=== PATIENT | female | born 1945 | race Caucasian/White ===

== ENCOUNTER → 2019-11-21 16:28 | Outpatient (BNVA) | payer MEDICARE, OTHER, SELFPAY | PROVIDERS: Visit Provider Family Medicine | DX: E78.5 Hyperlipidemia, unspecified (principal); I10 Essential (primary) hypertension; E11.9 Type 2 diabetes mellitus without complications | CPT/HCPCS: 80053; 80061; 83036; 85025 ==

== ENCOUNTER → 2020-07-14 09:05 | Outpatient (BNVA) | payer MEDICARE, OTHER, SELFPAY | PROVIDERS: Visit Provider Family Medicine | DX: E11.9 Type 2 diabetes mellitus without complications (principal) | CPT/HCPCS: 85025 ==

== ENCOUNTER → 2020-07-14 10:39 | Outpatient (BNVA) | payer MEDICARE, OTHER, SELFPAY | PROVIDERS: Visit Provider Family Medicine | DX: E11.9 Type 2 diabetes mellitus without complications (principal); E78.2 Mixed hyperlipidemia; I10 Essential (primary) hypertension; F41.9 Anxiety disorder, unspecified | CPT/HCPCS: 80053; 80061; 83036; 84443; 85025 ==

== ENCOUNTER → 2020-12-02 17:20 | Outpatient (BNVA) | payer MEDICARE, OTHER, SELFPAY | PROVIDERS: Visit Provider Family Medicine | DX: E11.9 Type 2 diabetes mellitus without complications (principal); E78.2 Mixed hyperlipidemia; F41.9 Anxiety disorder, unspecified; I10 Essential (primary) hypertension; M19.90 Unspecified osteoarthritis, unspecified site | CPT/HCPCS: 80053; 80061; 83036; 85025 ==

== ENCOUNTER 2021-01-23 13:30 | Emergency (ER) | payer MEDICARE, OTHER, SELFPAY ==
--- NOTE | 2021-01-23 13:40 | ED_ITS ---
HPI - SOB/Dyspnea General: Stated Complaint: COVID +: WEAK, SOB, COUGH Time Seen by Provider: 01/23/21 13:38 PFSH ED PFSH: Medical History Anxiety Arthritis Hyperlipidemia Hypertension Irritable bowel syndrome Social History Smoking and tobacco status: never smoked Alcohol intake: never Discharge Plan Discharge Prescriptions: No Action lisinopril 10 mg tablet 10 mg PO DAILY Qty: 90 RF: 3 metformin 1,000 mg tablet 1,000 mg PO BID Qty: 180 RF: 2 pravastatin 40 mg tablet 40 mg PO DAILY Qty: 90 RF: 2 Prolia 60 mg/mL syringe See Rx Instructions SUBCUT .COMPLEX RF: 0 meloxicam 7.5 mg tablet 7.5 mg PO DAILY PRNRF: 0 anastrozole 1 mg tablet 1 mg PO DAILY RF: 0 sertraline 100 mg tablet See Rx Instructions .ROUTE .COMPLEX Qty: 180 RF: 0 Coding Level of Care Code ED Header Set Up Operator for Saravanan Marquez
[2021-01-23 13:47] VITALS: BP 146/76; PULSE 99; RESP 16; TEMP 37.4; O2SAT 98
--- NOTE | 2021-01-23 14:01 | XRR_ITS ---
PROCEDURE INFORMATION: Exam: XR Chest Exam date and time: 01/23/2021 2:01 PM Age: 75 years old Clinical indication: Shortness of breath; Additional info: Covid symptoms TECHNIQUE: Imaging protocol: XR of the chest. Views: 1 view. COMPARISON: CR Chest 2 views* [id number] 09/22/2015 10:52 AM FINDINGS: Lungs: The lungs are clear. Pleural spaces: Unremarkable. No pleural effusion. No pneumothorax. Heart/Mediastinum: Unremarkable. No cardiomegaly. Bones/joints: Mild degenerative changes are observed in the lower thoracic spine. Mild levocurvature of the midthoracic spine is appreciated. No acute fracture is visualized. Small calcification in the left subacromial space may be an intra-articular loose body or rotator cuff calcification. Soft tissues: Several small surgical clips are present in the inferolateral right chest wall versus right breast. XR/XR chest 1V portable [id number] IMPRESSION: 1. No acute cardiopulmonary abnormality. 2. Left shoulder intra-articular loose body versus supraspinatus myotendinous calcification. Radiation Dose CTDIVOL = (mGy): DLP = (mGy-cm)
--- NOTE | 2021-01-23 14:19 | W.ED.COVID ---
HPI - COVID General: Chief Complaint: COVID symptoms Stated Complaint: COVID +: WEAK, SOB, COUGH Time Seen by Provider: 01/23/21 13:38 Triage information: Has fever, cough or shortness of breath. History of Present Illness: HPI Narrative: Patient is a 75-year-old female comes to the ED with reported symptoms. Patient has a past medical history of type 2 diabetes, hypertension and hyperlipidemia. Her symptoms started approximately 3 days ago. She has had nasal drainage and congestion along with a fever and cough. She describes her cough as mostly dry but occasionally she coughs up her nasal drainage. She took an at-home COVID-19 test and it came back positive. Denies any chest pain, shortness of breath, abdominal pain, nausea/vomiting, bladder or bowel symptoms. Patient has had normal p.o. intake and is able to keep food and fluids down. Patient also complains of having a little bit of dizziness since onset of symptoms. Patient is fully vaccinated for COVID-19. COVID 19 common symptoms: positive fever(s), non-productive cough, fatigue, body aches and nasal congestion; negative chills, productive cough, dyspnea, headache(s), throat pain, nausea, vomiting or diarrhea COVID 19 other sytmptoms: negative chest pain COVID Results: SARS-CoV-2 Antigen (Rapid) Positive (Negative) H 01/23/21 14:05 01/23/21 Review of Systems Const: Reports: fever(s), body aches and fatigue; Denies: chills Eyes: Denies: change in vision or eye discomfort ENMT: Reports: nasal discharge and nasal congestion; Denies: throat pain or odynophagia Card: Denies: chest pain, palpitations, edema, swelling of feet/ankles, dyspnea on exertion or orthopnea Resp: Reports: non-productive cough; Denies: dyspnea or productive cough GI: Denies: abdominal pain, nausea, vomiting, diarrhea, constipation or hematochezia : Denies: flank pain, dysuria or hematuria Musc: Denies: neck pain, back pain or extremity swelling Skin/Breast: Denies: rash or new lesions Neuro: Reports: dizziness; Denies: headache(s), numbness in extremities or weakness in extremities PFS ED PFSH: Medical History Anxiety Arthritis Hyperlipidemia Hypertension Irritable bowel syndrome Social History Smoking and tobacco status: never smoked Alcohol intake: never Physical Exam Const: COMMON NORMALS: no acute distress, patient oriented x3, healthy appearing and alert GENERAL APPEARANCE: cooperative and comfortable HENMT: COMMON NORMALS: normocephalic HEAD & SCALP: normocephalic MOUTH: Normal oral and palatal mucosa present THROAT: posterior oropharynx normal and uvula midline Neck/C-Spine: COMMON NORMALS: supple GENERAL: Yes normal visual inspection Resp: COMMON NORMALS: normal respiratory effort, No retractions, No use of accessory muscles and clear to auscultation bilaterally EFFORT & INSPECTION: Yes able to speak in complete sentences, No tachypneic, No respiratory distress and No labored AUSCULTATION: clear to auscultation bilaterally Cardio: COMMON NORMALS: regular rate, regular rhythm, S1 normal heart sound present, S2 normal heart sound present, No gallops present (Cardio), No clicks present (Cardio), No murmurs present (Cardio) and Peripheral pulses 2+ throughout RATE: regular rate RHYTHM: regular rhythm HEART SOUNDS: S1 normal heart sound present and S2 normal heart sound present PERIPHERAL PULSES: Peripheral pulses 2+ throughout GI: COMMON NORMALS: Normal to inspection, nondistended, normoactive bowel sounds present, Soft to palpation, non-tender and no masses PALPATION: Yes Soft to palpation : COMMON NORMALS: Yes no CVA tenderness BLADDER/KIDNEY EXAM: Yes no CVA tenderness Back/Pelvis: COMMON NORMALS: no CVA tenderness Extremity: COMMON NORMALS: normal to inspection Neuro: COMMON NORMALS: patient oriented x3 and moves all extremities SENSORIUM/ORIENTATION: Yes alert Skin: GENERAL SKIN EXAM: dry skin Course Vital Signs: Vital signs: Vital Signs Temperature 99.4 F 01/23/21 13:47 Pulse Rate 100 01/23/21 16:11 Respiratory Rate 16 01/23/21 13:47 Blood Pressure 123/59 01/23/21 16:11 Pulse Oximetry 95 01/23/21 16:11 MDM - COVID MDM Narrative: Medical decision making narrative: Patient is a 75-year-old female comes to the ED with Covid symptoms. Symptoms started 3 days ago. Patient has a past medical history of diabetes and hypertension. Patient has been fully vaccinated for COVID-19. She took an at-home Covid test and it was positive. She has had a fever, productive cough and body aches. Vital stable. Exam is benign. Patient's rapid Covid test was positive and her CBC and CMP are unremarkable. Chest x-ray was clear and EKG showed no acute findings. I spoke with patient about monoclonal antibody infusions and she would like to be set up to get an infusion. I placed an order for patient to be set up with MCA infusion. Patient signed an informed consent form for the MCA infusion. I told patient that senior case manager only contacting her on Monday morning to schedule infusion time. Return to ED precautions given. Patient understood and agree with plan. Lab Data: Attestation: I reviewed the patient's lab results. Labs: Lab Results 01/23/21 01/23/21 01/23/21 14:05 15:12 15:12 WBC 5.6 10^3/uL 10^3/ uL (4.0-10.0) RBC 4.14 10^6/uL 10^6 /uL (4.1-5.3) Hgb 12.9 g/dL g/dL (11.5-15.3) Hct 40.0 % % (37.0-47.0) MCV 96.6 fl fl (81-99) MCH 31.2 pg pg (28.0-34.0) MCHC 32.3 g/dL g/dL (30.0-36.0) RDW 13.2 % % (12.1-15.1) Plt Count 244 10^3/cmm 10^3 /cmm (130-400) MPV 9.9 fL fL (7.4-10.4) Neut % (Auto) 68.5 % % Lymph % (Auto) 16.2 % % [place] % (Auto) 13.4 % % Eos % (Auto) 1.2 % % Baso % (Auto) 0.5 % % Neut # (Auto) 3.84 10^3/uL 10^3 /uL (1.8-7.7) Lymph # (Auto) 0.9 10^3/uL 10^3/ uL (0.8-4.8) [place] # (Auto) 0.8 10^3/uL 10^3/ uL (0.2-0.9) Eos # (Auto) 0.1 10^3/uL 10^3/ uL (0.0-0.8) Baso # (Auto) 0.0 10^3/uL 10^3/ uL (0.0-0.1) Nucleated RBC % (a uto) 0 % % Nucleated RBCs # 0.0 /100WBC /100W BC Sodium 138 mmol/L mmol/L (136-145) Potassium 3.8 mmol/L mmol/L (3.5-5.1) Chloride 99 mmol/L mmol/L (98-107) Carbon Dioxide 26 mmol/L mmol/L (22-29) Anion Gap 16.8 (5-19) BUN 14 mg/dL mg/dL (8-23) Creatinine 0.6 mg/dL mg/dL (0.5-0.9) GFR Calculation Not Reportable Glucose 107 mg/dL mg/dL (65-115) Calculated Osmolal ity 287 mOsm/kg mOsm/ kg (285-295) Calcium 9.4 mg/dL mg/dL (8.5-10.5) Total Bilirubin 0.2 mg/dL mg/dL (0.15-1.2) AST 21 U/L U/L (0-32) ALT 15 U/L U/L (0-33) Alkaline Phosphata se 72 IU/L IU/L (35-105) Total Protein 7.5 g/dL g/dL (6.6-8.7) Albumin 4.5 g/dL g/dL (3.5-5.2) Globulin 3.0 g/dL g/dL (1.3-4.6) SARS-CoV-2 Ag (Rap id) Positive H (Negative) Imaging Data: CXR: Attestation: I personally reviewed and interpreted this imaging study as follows: Radiologist's impression: [address] [address] XRay Report Signed Patient: Anna Gomez Unit #: [id number] : 1945 Age/Sex: 75 / F ADM Date: 01/23/21 Loc: ER Room/Bed: Attending Dr: Ordering Provider/Ordering MD: Gonzalo Roberts Date of Service: 01/23/21 Procedure(s): XR chest 1V portable [id number] Accession Number(s): [id number] Report Number: [id number] PROCEDURE INFORMATION: Exam: XR Chest Exam date and time: 01/23/2021 2:01 PM Age: 75 years old Clinical indication: Shortness of breath; Additional info: Covid symptoms TECHNIQUE: Imaging protocol: XR of the chest. Views: 1 view. COMPARISON: CR Chest 2 views* [id number] 09/22/2015 10:52 AM FINDINGS: Lungs: The lungs are clear. Pleural spaces: Unremarkable. No pleural effusion. No pneumothorax. Heart/Mediastinum: Unremarkable. No cardiomegaly. Bones/joints: Mild degenerative changes are observed in the lower thoracic spine. Mild levocurvature of the midthoracic spine is appreciated. No acute fracture is visualized. Small calcification in the left subacromial space may be an intra-articular loose body or rotator cuff calcification. Soft tissues: Several small surgical clips are present in the inferolateral right chest wall versus right breast. XR/XR chest 1V portable [id number] IMPRESSION: 1. No acute cardiopulmonary abnormality. 2. Left shoulder intra-articular loose body versus supraspinatus myotendinous calcification. Radiation Dose CTDIVOL = (mGy): DLP = (mGy-cm) Dictated By: Edenilson Roman MD Signed By: Edenilson Roman MD Signed Date/Time: 01/23/21 1520 DD/ 1401 EKG Data: EKG 1: Attestation: I personally reviewed and interpreted this EKG as follows: EKG interpretation date: 01/23/21 Interpretation: Sinus rhythm, 89 bpm, no ST segment elevation or depression seen. COVID Results: SARS-CoV-2 Antigen (Rapid) Positive (Negative) H 01/23/21 14:05 01/23/21 Discharge Plan Discharge Patient Disposition: Home Clinical Impression: COVID-19 Condition: Stable Prescriptions: New azithromycin 250 mg tablet See Rx Instructions .ROUTE .COMPLEX Qty: 6 RF: 0 prednisone 20 mg tablet 20 mg PO BID 3 Days Qty: 6 RF: 0 No Action lisinopril 10 mg tablet 10 mg PO DAILY Qty: 90 RF: 3 metformin 1,000 mg tablet 1,000 mg PO BID Qty: 180 RF: 2 pravastatin 40 mg tablet 40 mg PO DAILY Qty: 90 RF: 2 Prolia 60 mg/mL syringe See Rx Instructions SUBCUT .COMPLEX RF: 0 meloxicam 7.5 mg tablet 7.5 mg PO DAILY PRNRF: 0 anastrozole 1 mg tablet 1 mg PO DAILY RF: 0 sertraline 100 mg tablet See Rx Instructions .ROUTE .COMPLEX Qty: 180 RF: 0 Discharge Orders: Discharge ED (Routine); Ordered 01/23/21 Ordered By: Gonzalo Roberts Referrals: Audelia Grant MD [Primary Care Provider] - Discharge Diet: Regular Discharge Activity: Resume usual activity Patient Instructions: Viral Syndrome (ED) Activity Restrictions/Additional Instructions: Follow-up with medical provider as directed. Case management should be contacting you on Monday morning to set up an appointment for monoclonal antibody infusions. Take medications as prescribed. Return to the ER or your medical provider if condition worsens. Please read and understand discharge instructions. Thank you for choosing [facility] for your healthcare needs today. Please realize this is an emergency room and that we are providing you with a medical screening exam and this may not be complete and all inclusive of all the testing and or work up that you may need to determine your ailment or severity of your illness. It is very important that you follow up as instructed or that you return to the Emergency Department should you have concerns or if your condition changes or worsens in any way. Coding Level of Care Code ED Marble Finisher for Saravanan Marquez Exam Comprehensive
[2021-01-23 14:27] VITALS: O2SAT 98
--- NOTE | 2021-01-23 14:29 | ECG_ITS ---
[facility] Test Date: 2021-01-23 Pat Name: Anna Gomez Department: Room: Gender: Female Client Support Associate: : 1945 Requested By: Gonzalo Roberts Order Number: [id number] Frank MD: Festus Escoto M.D. Measurements Intervals [place] Rate: 89 P: 72 TX: 140 QRS: 6 QRSD: 81 T: 46 QT: 333 QTc: 405 Interpretive Statements SINUS RHYTHM No previous ECG available for comparison Electronically Signed On 01-24-2021 21:56:16 TIMBER MANAGEMENT SPECIALIST by Festsu Escoto M.D. [email or web address]
[2021-01-23 14:41] LABS: SARS Covid-2 Antigen Positive (Negative)
[2021-01-23 15:07] VITALS: BP 123/59; PULSE 81; O2SAT 96
[2021-01-23 15:22] LABS: Basophils % 0.5 %; Eosinophils # 0.1 10^3/uL (0.0-0.8); Eosinophils % 1.2 %; Hemoglobin 12.9 g/dL (11.5-15.3); Lymphocytes # 0.9 10^3/uL (0.8-4.8); Lymphocytes % 16.2 %; Mean Corpuscular HGB Conc 32.3 g/dL (30.0-36.0); Mean Corpuscular Hemoglobin 31.2 pg (28.0-34.0); Mean Corpuscular Volume 96.6 fl (81-99); Mean Platelet Volume 9.9 fL (7.4-10.4); Monocytes # 0.8 10^3/uL (0.2-0.9); Monocytes % 13.4 %; Neutrophils # 3.84 10^3/uL (1.8-7.7); Neutrophils % 68.5 %; Nucleated Red Blood Cells % 0 %; Platelet Count 244 10^3/cmm (130-400); Red Blood Count 4.14 10^6/uL (4.1-5.3); Red Cell Distribution Width 13.2 % (12.1-15.1); White Blood Count 5.6 10^3/uL (4.0-10.0)
[2021-01-23 15:37] LABS: Alanine Aminotransferase 15 U/L (0-33); Albumin Level 4.5 g/dL (3.5-5.2); Alkaline Phosphatase 72 IU/L (35-105); Anion Gap 16.8 (5-19); Aspartate Amino Transferase 21 U/L (0-32); Blood Urea Nitrogen 14 mg/dL (8-23); Calcium 9.4 mg/dL (8.5-10.5); Carbon Dioxide 26 mmol/L (22-29); Chloride 99 mmol/L (98-107); Glucose 107 mg/dL (65-115); Osmolality Calculated 287 mOsm/kg (285-295); Potassium 3.8 mmol/L (3.5-5.1); Sodium 138 mmol/L (136-145); Total Bilirubin 0.2 mg/dL (0.15-1.2); Total Protein 7.5 g/dL (6.6-8.7)
[2021-01-23 16:11] VITALS: BP 123/59; PULSE 100; O2SAT 95
--- NOTE | 2021-01-25 09:15 | DCPLANNER ---
propagation manager had message to schedule a monoclonal antibody infusion. propagation manager faxed signed order to centralized scheduling, who will call patient with appointment information.
== END 2021-01-23 16:13 | disposition home or self-care (01) ==
PROVIDERS: Emergency Provider Physician Assistant; PCP Family Medicine
DX: U07.1 COVID-19 (principal); Z79.84 Long term (current) use of oral hypoglycemic drugs; E78.5 Hyperlipidemia, unspecified; I10 Essential (primary) hypertension
CPT/HCPCS: 71045; 80053; 85025; 87426; 93005; 99283

== ENCOUNTER 2021-01-25 13:10 | Outpatient (CLI) | payer MEDICARE, OTHER, SELFPAY ==
[2021-01-25 13:27] VITALS: BP 116/73; PULSE 97; RESP 18; TEMP 36.4; O2SAT 97; BMI 21.9
[2021-01-25 13:54] VITALS: BP 113/71; PULSE 91; RESP 16; TEMP 36.3; O2SAT 97
[2021-01-25 14:47] VITALS: BP 108/63; PULSE 90; RESP 18; TEMP 36.4; O2SAT 97
== END 2021-01-25 13:11 | disposition home or self-care (01) ==
PROVIDERS: PCP Family Medicine; Visit Provider Physician Assistant
DX: U07.1 COVID-19 (principal)
CPT/HCPCS: 96365

== ENCOUNTER → 2021-09-08 11:27 | Outpatient (BNVA) | payer MEDICARE, OTHER, SELFPAY | PROVIDERS: PCP Family Medicine; Visit Provider Nurse Practitioner Family | DX: E78.5 Hyperlipidemia, unspecified (principal); I10 Essential (primary) hypertension; E11.9 Type 2 diabetes mellitus without complications; F41.9 Anxiety disorder, unspecified; E78.2 Mixed hyperlipidemia; L98.9 Disorder of the skin and subcutaneous tissue, unspecified; J30.2 Other seasonal allergic rhinitis; M19.90 Unspecified osteoarthritis, unspecified site | CPT/HCPCS: 80053; 80061; 83036; 84443 ==

== ENCOUNTER → 2021-11-30 13:38 | Outpatient (BNVA) | payer MEDICARE, OTHER, SELFPAY | PROVIDERS: PCP Family Medicine; Visit Provider Nurse Practitioner Family | DX: R30.9 Painful micturition, unspecified (principal); E11.9 Type 2 diabetes mellitus without complications; J32.9 Chronic sinusitis, unspecified; E78.2 Mixed hyperlipidemia; N39.0 Urinary tract infection, site not specified | CPT/HCPCS: 81003; 87086 ==

== ENCOUNTER → 2022-01-26 12:39 | Outpatient (BNVA) | payer MEDICARE, OTHER, SELFPAY | PROVIDERS: PCP Family Medicine; Visit Provider Family Medicine | DX: E11.9 Type 2 diabetes mellitus without complications (principal); F41.9 Anxiety disorder, unspecified; E78.2 Mixed hyperlipidemia; I10 Essential (primary) hypertension; Z23 Encounter for immunization | CPT/HCPCS: 80053; 80061; 83036; 84443; 85025 ==

== ENCOUNTER → 2022-04-28 15:10 | Outpatient (BNVA) | payer MEDICARE, OTHER, SELFPAY | PROVIDERS: PCP Family Medicine; Visit Provider Family Medicine | DX: R30.0 Dysuria (principal) | CPT/HCPCS: 81003; 87086 ==

== ENCOUNTER → 2022-08-08 14:56 | Outpatient (BNVA) | payer MEDICARE, OTHER, SELFPAY | PROVIDERS: PCP Family Medicine; Visit Provider Family Medicine | DX: E78.2 Mixed hyperlipidemia (principal); F32.A Depression, unspecified; E11.9 Type 2 diabetes mellitus without complications; I10 Essential (primary) hypertension | CPT/HCPCS: 80053; 80061; 83036; 84443; 85025 ==

== ENCOUNTER → 2023-01-03 11:54 | Outpatient (BNVA) | payer MEDICARE, OTHER, SELFPAY | PROVIDERS: PCP Family Medicine; Visit Provider Family Medicine | DX: I10 Essential (primary) hypertension (principal); E11.9 Type 2 diabetes mellitus without complications; E78.2 Mixed hyperlipidemia; E78.5 Hyperlipidemia, unspecified; F32.A Depression, unspecified; E11.8 Type 2 diabetes mellitus with unspecified complications; F41.9 Anxiety disorder, unspecified | CPT/HCPCS: 80053; 80061; 83036; 84443; 85025 ==

== ENCOUNTER → 2023-06-28 11:35 | Outpatient (BNVA) | payer MEDICARE, OTHER, SELFPAY | PROVIDERS: PCP Family Medicine; Visit Provider Family Medicine | DX: E11.9 Type 2 diabetes mellitus without complications (principal); E78.2 Mixed hyperlipidemia; F41.9 Anxiety disorder, unspecified; I10 Essential (primary) hypertension; K29.70 Gastritis, unspecified, without bleeding | CPT/HCPCS: 80053; 80061; 83036; 84443; 85025 ==

== ENCOUNTER → 2023-09-26 11:09 | Outpatient (BNVA) | payer MEDICARE, OTHER, SELFPAY | PROVIDERS: PCP Family Medicine; Visit Provider Obstetrics & Gynecology | DX: N83.292 Other ovarian cyst, left side (principal) | CPT/HCPCS: 76830 ==

== ENCOUNTER 2023-12-05 06:19 | Emergency (ER) | payer MEDICARE, OTHER, SELFPAY ==
[2023-12-05 06:22] VITALS: BP 154/93; PULSE 107; RESP 16; TEMP 36.8; O2SAT 99; BMI 20.1
--- NOTE | 2023-12-05 06:36 | ED_ITS ---
HPI - Back Pain/Injury 2 General: Chief Complaint: Back Pain/Injury Stated Complaint: constipation / NV Time Seen by Provider: 12/05/23 06:20 History of Present Illness: 89-year-old female presents emergency ro om with admitted flank pain, constipation and nausea vomiting. She has been constipated for about a week she says. She has not had so hard stools. Overnight she developed right flank pain nausea and vomiting. No dysuria. No fevers. No bloating. No altered mental status. No focal motor deficits. No chest pain. No shortness of breath. Related Data Home Medications Medication Instructions Recorded Confirmed Multi Vitamin 1 tab PO DAILY 12/05/23 12/05/23 calcium 600 mg capsule 600 mg PO DAILY 12/05/23 12/05/23 cholecalciferol (vitamin D3) 50 50 mcg PO DAILY 12/05/23 12/05/23 mcg (2,000 unit) capsule (Vitamin D3) liraglutide 0.6 mg/0.1 mL (18 mg/3 See Rx Instructions .Route 12/05/23 12/05/23 mL) subcutaneous pen injector .COMPLEX PRN Can't get it often (Victoza 2-Sean) Previous Rx's Medication Instructions Recorded lisinopril 10 mg tablet See Rx Instructions .Route 01/03/23 .COMPLEX #90 tabs pravastatin 40 mg tablet See Rx Instructions .Route 01/03/23 .COMPLEX #90 tabs ondansetron HCl 4 mg tablet 4 mg PO Q8H PRN nausea and 06/28/23 vomiting #30 tabs bupropion HCl 150 mg 24 hr tablet, 150 mg PO DAILY #90 tabs 07/04/23 extended release (Wellbutrin XL) pantoprazole 40 mg tablet,delayed 40 mg PO DAILY #90 tabs 07/04/23 release diazepam 5 mg tablet (Valium) 5 mg PO BID PRN anxiety #30 tabs 11/09/23 cefdinir 300 mg capsule 300 mg PO BID 10 days #20 caps 12/05/23 glycerin (adult) 1 supp VA DAILY PRN constipation 12/05/23 #12 ea magnesium citrate 296 ml PO ONCE #296 mL 12/05/23 ondansetron 8 mg disintegrating 8 mg PO Q6H #14 tabs 12/05/23 tablet Allergies Allergy/AdvReac Type Severity Reaction Status Date / Time codeine Allergy Severe heart Verified 10/03/23 07:55 rhythm goes crazy pneumococcal vaccine Allergy Severe high blood Verified 10/03/23 07:55 [From Pneumovax-23] pressure followed by low blood pressure Sulfa (Sulfonamide Allergy Intermediate nausea Verified 10/03/23 07:55 Antibiotics) amitriptyline Allergy Unknown Verified 10/03/23 07:55 tramadol Allergy Unknown Verified 10/03/23 07:55 Review of Systems 2 Narrative: Constitutional symptoms: Negative except as documented in HPI. Skin symptoms: Negative except as documented in HPI. Eye symptoms: Negative except as documented in HPI. ENMT symptoms: Negative except as documented in HPI. Respiratory symptoms: Negative except as documented in HPI. Cardiovascular symptoms: Negative except as documented in HPI. Gastrointestinal symptoms: Negative except as documented in HPI. Genitourinary symptoms: Negative except as documented in HPI. Musculoskeletal symptoms: Negative except as documented in HPI. Neurologic symptoms: Negative except as documented in HPI. Psychiatric symptoms: Negative except as documented in HPI. Endocrine symptoms: Negative except as documented in HPI. PFSH ED 2 PFSH: Medical History Enrolled in chronic care management Hypertension Hyperlipidemia Arthritis Irritable bowel syndrome Anxiety Family History Mother Diabetes Hypercholesteremia Brother Diabetes Sister Diabetes Denies family history of Colon cancer Ovarian cancer Prostate cancer Heart disease Breast cancer Hypertension Uterine cancer Thyroid disease Stroke Social History Smoking and tobacco/nicotine status: never used tobacco/nicotine Physical Exam 2 Narrative: EXAM NARRATIVE: General: Alert, no acute distress. Skin: Warm, dry. Head: Normocephalic, atraumatic. Neck: Supple, trachea midline. Eye: Extraocular movements are intact. Ears, nose, mouth and throat: mucosa moist. Cardiovascular: Regular, Normal peripheral perfusion. Respiratory: Lungs are clear to auscultation, respirations are non-labored, breath sounds are equal, Symmetrical chest wall expansion. Gastrointestinal: Soft, right flank pain, Non distended Musculoskeletal: Normal ROM, no deformity. Neurological: Alert and oriented, No focal neurological deficit observed. Psychiatric: Cooperative, appropriate mood & affect. Course 2 Vital Signs: Vital signs: Vital Signs Temperature 98.2 F 12/05/23 06:22 Pulse Rate 99 12/05/23 08:00 Respiratory Rate 17 12/05/23 08:00 Blood Pressure 149/82 12/05/23 08:00 Pulse Oximetry 98 12/05/23 08:00 Oxygen Delivery Me thod Room Air 12/05/23 08:00 MDM - Back Pain/Injury Medical Decision Making Medical decision making: Differential diagnosis including but not limited to and based on the above HPI, review of systems and physical exam: Ureterolithiasis. Urinary tract infection. Appendicitis. Cholecystis. Musculoskeletal / back pain. Pyelonephritis Orders placed to evaluate differential diagnosis based on the above differential, HPI and physical exam Lab Review: Laboratory results were reviewed and interpreted by myself the emergency room physician. No leukocytosis. No anemia. BUN/creatinine mildly elevated at 20 and 0.9. Urinalysis slightly complicated at 1.020. She has hematuria and the 80-100 whites. Given her symptoms and if this is a UTI and pyelonephritis. CT of the abdomen pelvis shows no acute pelvic inflammatory process. She does have some constipation. Left ovarian cyst. This was reviewed and interpreted by myself the emergency room physician. I also reviewed the radiology report. I reviewed the patient's medical record. Reexamination: Patient remained stable. No increased work of breathing. No altered mental status. No focal motor deficits. Sepsis alert: Patient does not appear septic. She does have a UTI. She was slightly tachycardic initially which was likely secondary to pain. Her blood pressures remain normal. No leukocytosis. Assessment and plan: Urinary tract infection Constipation Dehydration ?IV Rocephin, IV normal saline bolus, IV morphine and IV Zofran. - Discharged home - Discussed findings and plan with patient. Answered any questions. - All laboratory values were reviewed and interpreted personally by myself, the ER physician - All imaging was reviewed and interpreted personally by myself, the ER physician. - Evaluation and treatment of this problem were appropriate in the emergency setting Labs 12/05/23 06:33 12/05/23 06:33 Radiology Impressions Abdomen/Pelvis CT 12/05/23 07:17 IMPRESSION: 1. No evidence of acute abdominal or pelvic inflammatory process. 2. Constipation. 3. Slight interval enlargement in a left simple left ovarian cyst. COMMENTS: Consistent with the [employer] [place] [employer]'s Incidental Findings Committee white paper (J Am Anna Radiol 2018): Any incidental renal lesion less than 1 cm or classified as too small to characterize, or any incidental cystic renal lesion characterized as simple-appearing, is likely benign. No follow-up imaging is recommended for these lesions per consensus recommendations based on imaging criteria. Laboratory Results WBC 9.45 10^3/uL (3.29-11.43) 12/05/23 06:33 RBC 4.15 10^6/uL (3.85-5.65) 12/05/23 06:33 Hgb 13.10 g/dL (11.27-16.99) 12/05/23 06:33 Hct 39.8 % (36-47) 12/05/23 06:33 MCV 95.9 fl (85-98) 12/05/23 06:33 MCH 31.6 pg (27-33) 12/05/23 06:33 MCHC 32.9 g/dL (30-55) 12/05/23 06:33 RDW 12.7 % (12.1-15.1) 12/05/23 06:33 Plt Count 320 10^3/cmm (157-399) 12/05/23 06:33 MPV 9.9 fL (7.4-10.4) 12/05/23 06:33 Neut % (Auto) 59.6 % 12/05/23 06:33 Lymph % (Auto) 26.7 % 12/05/23 06:33 [place] % (Auto) 10.8 % 12/05/23 06:33 Eos % (Auto) 2.1 % 12/05/23 06:33 Baso % (Auto) 0.5 % 12/05/23 06:33 Neut # (Auto) 5.63 10^3/uL (1.8-7.7) 12/05/23 06:33 Lymph # (Auto) 2.5 10^3/uL (0.8-4.8) 12/05/23 06:33 [place] # (Auto) 1.0 10^3/uL (0.2-0.9) H 12/05/23 06:33 Eos # (Auto) 0.2 10^3/uL (0.0-0.8) 12/05/23 06:33 Baso # (Auto) 0.1 10^3/uL (0.0-0.1) 12/05/23 06:33 Nucleated RBC % (auto) 0 % 12/05/23 06:33 Nucleated RBCs # 0.0 /100WBC 12/05/23 06:33 Sodium 142 mmol/L (136-145) 12/05/23 06:33 Potassium 4.2 mmol/L (3.5-5.1) 12/05/23 06:33 Chloride 101 mmol/L (98-107) 12/05/23 06:33 Carbon Dioxide 28 mmol/L (22-29) 12/05/23 06:33 Anion Gap 17.2 (5-19) 12/05/23 06:33 BUN 22 mg/dL (8-23) 12/05/23 06:33 Creatinine 0.9 mg/dL (0.5-0.9) 12/05/23 06:33 GFR Calculation Not Reportable 12/05/23 06:33 Glucose 136 mg/dL (65-115) H 12/05/23 06:33 Calculated Osmolality 299 mOsm/kg (285-295) H 12/05/23 06:33 Calcium 9.9 mg/dL (8.5-10.5) 12/05/23 06:33 Total Bilirubin 0.3 mg/dL (0.15-1.2) 12/05/23 06:33 AST 23 U/L (0-32) 12/05/23 06:33 ALT 13 U/L (0-33) 12/05/23 06:33 Alkaline Phosphatase 57 U/L (35-105) 12/05/23 06:33 Total Protein 7.8 g/dL (6.6-8.7) 12/05/23 06:33 Albumin 4.9 g/dL (3.5-5.2) 12/05/23 06:33 Globulin 2.9 g/dL (1.3-4.6) 12/05/23 06:33 Urine Color Yellow (Yellow) 12/05/23 06:40 Urine Appearance Slightly cloudy (CLEAR) 12/05/23 06:40 Urine pH 5 (5-7) 12/05/23 06:40 Ur Specific Fred 1.020 (1.005-1.030) 12/05/23 06:40 Urine Protein 2+ (Negative) H 12/05/23 06:40 Urine Glucose (UA) Norm (Normal) 12/05/23 06:40 Urine Ketones Negative (Negative) 12/05/23 06:40 Urine Blood 3+ (Negative) H 12/05/23 06:40 Urine Nitrate Negative (Negative) 12/05/23 06:40 Urine Bilirubin 1+ (Negative) H 12/05/23 06:40 Urine Urobilinogen Norm mg/dL (Negative) 12/05/23 06:40 Ur Leukocyte Esterase 2+ (Negative) H 12/05/23 06:40 Urine RBC >100 /hpf (0-2) H 12/05/23 06:40 Urine WBC 80-100 /hpf (0-5) H 12/05/23 06:40 Ur Squamous Epith Cells 0-4 /hpf (0-5) H 12/05/23 06:40 Amorphous Sediment Not Reportable 12/05/23 06:40 Urine Bacteria 2+ /hpf (NONE) H 12/05/23 06:40 All radiology interpretation(s) finalized by discharge Discharge Plan Discharge Patient Disposition: Home Clinical Impression: Pyelonephritis, Urinary tract infection, Constipation, Dehydration Condition: Stable Prescriptions: New cefdinir 300 mg capsule 300 mg PO BID 10 Days Qty: 20 0RF glycerin (adult) Suppository 1 supp VA DAILY PRN (Reason: constipation) Qty: 12 0RF ondansetron 8 mg tablet,disintegrating 8 mg PO Q6H Qty: 14 0RF Rx Instructions: Take 1/2-1 tab every 6 hours as needed for nausea and vomiting magnesium citrate Solution 296 ml PO ONCE Qty: 296 0RF No Action lisinopril 10 mg tablet See Rx Instructions .ROUTE .COMPLEX Qty: 90 3RF Dose Instruction: TAKE 1 TABLET EVERY DAY Rx Instructions: TAKE 1 TABLET EVERY DAY pravastatin 40 mg tablet See Rx Instructions .ROUTE .COMPLEX Qty: 90 3RF Dose Instruction: TAKE 1 TABLET EVERY DAY Rx Instructions: TAKE 1 TABLET EVERY DAY ondansetron HCl 4 mg tablet 4 mg PO Q8H PRN (Reason: nausea and vomiting) Qty: 30 2RF pantoprazole 40 mg tablet,delayed release (DR/EC) 40 mg PO DAILY Qty: 90 1RF bupropion HCl [Wellbutrin XL] 150 mg tablet extended release 24 hr 150 mg PO DAILY Qty: 90 1RF diazepam [Valium] 5 mg tablet 5 mg PO BID PRN (Reason: anxiety) Qty: 30 3RF Victoza 2-Sean 0.6 mg/0.1 mL (18 mg/3 mL) pen injector See Rx Instructions .ROUTE .COMPLEX PRN (Reason: Can't get it often ) Rx Instructions: INJECT 1.8MG SUBCUTANEOUSLY DAILY calcium 600 mg Capsule 600 mg PO DAILY Vitamin D3 50 mcg (2,000 unit) Capsule 50 mcg PO DAILY Multi Vitamin 1 tab PO DAILY Discharge Orders: Discharge ED (Routine); Ordered 12/05/23 Ordered By: Jolene Batres Referrals: Audelia Grant MD [Primary Care Provider] - Discharge Diet: Usual diet Discharge Activity: Increase activity as tolerated Patient Instructions: Urinary Tract Infection in Women (ED) Activity Restrictions/Additional Instructions: Thank you for choosing [facility] for your healthcare needs today. Please realize this is an emergency room and that we are providing you with a medical screening exam and this may not be complete and all inclusive of all the testing and or work up that you may need to determine your ailment or severity of your illness. You have been screened and evaluated and felt safe for discharge. Health conditions do change or evolve sometimes and as such it is important that you follow up with your Primary Doctor to be re checked, 3-5 days is a general good time frame for follow up. You are always welcome to return to the ED for re assessment if your symptoms are worsening or you have new concerns Coding Level of Care Code ED Computer Sciences Professor for Saravanan Marquez
[2023-12-05 07:03] LABS: Basophils # 0.1 10^3/uL (0.0-0.1); Basophils % 0.5 %; Eosinophils # 0.2 10^3/uL (0.0-0.8); Eosinophils % 2.1 %; Hematocrit 39.8 % (36-47); Lymphocytes # 2.5 10^3/uL (0.8-4.8); Lymphocytes % 26.7 %; Mean Corpuscular HGB Conc 32.9 g/dL (30-55); Mean Corpuscular Hemoglobin 31.6 pg (27-33); Mean Corpuscular Volume 95.9 fl (85-98); Mean Platelet Volume 9.9 fL (7.4-10.4); Monocytes % 10.8 %; Neutrophils # 5.63 10^3/uL (1.8-7.7); Neutrophils % 59.6 %; Nucleated Red Blood Cells % 0 %; Platelet Count 320 10^3/cmm (157-399); Red Blood Count 4.15 10^6/uL (3.85-5.65); Red Cell Distribution Width 12.7 % (12.1-15.1); White Blood Count 9.45 10^3/uL (3.29-11.43)
[2023-12-05 07:06] LABS: Urine Color Yellow (Yellow)
[2023-12-05 07:07] LABS: Bilirubin Urine 1+ (Negative); Blood Urine 3+ (Negative); Glucose Urine UA Norm (Normal); Ketones Urine Negative (Negative); Leukocyte Esterase Urine 2+ (Negative); Nitrate Urine Negative (Negative); Protein Urine 2+ (Negative); Urine Appearance Slightly Cloudy (CLEAR); Urobilinogen Urine Norm (Negative); pH Urine 5 (5-7)
[2023-12-05 07:10] VITALS: BP 147/77; PULSE 88; RESP 18; O2SAT 98
[2023-12-05 07:10] LABS: Alanine Aminotransferase 13 U/L (0-33); Albumin Level 4.9 g/dL (3.5-5.2); Alkaline Phosphatase 57 U/L (35-105); Anion Gap 17.2 (5-19); Aspartate Amino Transferase 23 U/L (0-32); Blood Urea Nitrogen 22 mg/dL (8-23); Calcium 9.9 mg/dL (8.5-10.5); Carbon Dioxide 28 mmol/L (22-29); Chloride 101 mmol/L (98-107); Creatinine Clr Calc Pharmacy 40.6782; Globulin 2.9 g/dL (1.3-4.6); Glucose 136 mg/dL (65-115); Osmolality Calculated 299 mOsm/kg (285-295); Potassium 4.2 mmol/L (3.5-5.1); Sodium 142 mmol/L (136-145); Total Bilirubin 0.3 mg/dL (0.15-1.2); Total Protein 7.8 g/dL (6.6-8.7)
[2023-12-05 07:11] LABS: Add Urine Culture? Yes; Bacteria Urine 2+ /hpf; RBC Urine >100 /hpf (0-2); Squamous Epithelial Cell Urine 0-4 /hpf (0-5); WBC Urine 80-100 /hpf (0-5)
--- NOTE | 2023-12-05 07:17 | CTR_ITS ---
PROCEDURE INFORMATION: Exam: CT Abdomen And Pelvis With Contrast Exam date and time: 12/05/2023 7:36 AM Age: 78 years old Clinical indication: Nausea and vomiting; Abdominal pain; Flank; Right; Additional info: Right flank pain TECHNIQUE: Imaging protocol: Computed tomography of the abdomen and pelvis with contrast. Radiation optimization: All CT scans at this facility use at least one of these dose optimization techniques: automated exposure control; mA and/or kV adjustment per patient size (includes targeted exams where dose is matched to clinical indication); or iterative reconstruction. Contrast material: [id number]; Contrast volume: 75 ml; Contrast route: INTRAVENOUS (IV); COMPARISON: 1. CT abdomen pelvis wo/w [id number] 04/18/2016 1:30 PM 2. US transvaginal [id number] 09/26/2023 11:17 AM RADIATION DOSE METRICS: Total DLP (mGy-cm): 302 FINDINGS: Liver: Normal. No mass. Gallbladder and biliary ducts: Normal. No calcified stones. No ductal dilation. Pancreas: Normal. No ductal dilation. Spleen: There are calcified splenic granulomas. Adrenal glands: Normal. No mass. Kidneys and ureters: There is a simple cyst within the upper pole of the left kidney. There are additional tiny low-density lesions within both kidneys which are too small to adequately characterize but likely reflect renal cysts. No hydronephrosis. Stomach and bowel: Moderate retained fecal material is noted throughout the colon, greatest involving the ascending colon. There is no evidence of bowel obstruction. Appendix: No evidence of appendicitis. Intraperitoneal space: Unremarkable. No free air. No significant fluid collection. Vasculature: Unremarkable. No abdominal aortic aneurysm. Lymph nodes: Unremarkable. No enlarged lymph nodes. Urinary bladder: Unremarkable as visualized. Reproductive: There has been mild interval enlargement in a cystic lesion within the left adnexa which now measures 2.5 x 3.7 cm compared with 3.1 x 2.5 cm previously and appears simple in nature on the recent ultrasound. Bones/joints: There is a moderate chronic compression fracture of the superior endplate of T12 and mild chronic compression fracture of the superior endplate of T11 Soft tissues: Unremarkable. CT/CT abdomen pelvis w con* [id number] IMPRESSION: 1. No evidence of acute abdominal or pelvic inflammatory process. 2. Constipation. 3. Slight interval enlargement in a left simple left ovarian cyst. COMMENTS: Consistent with the [place] [employer]'s Incidental Findings Committee white paper (J Am Anna Radiol 2018): Any incidental renal lesion less than 1 cm or classified as too small to characterize, or any incidental cystic renal lesion characterized as simple-appearing, is likely benign. No follow-up imaging is recommended for these lesions per consensus recommendations based on imaging criteria.
[2023-12-05] MEDS: iohexol 350 mg/mL 500 mL Btl (per mL) IV (07:48)
[2023-12-05 07:49] VITALS: RESP 14; O2SAT 98
[2023-12-05] MEDS: morphine 4 mg/mL SDV 1 mL IVP (07:49)
[2023-12-05] MEDS: ondansetron 2 mg/ML SDV 2 mL 4 MG IVP (07:49)
[2023-12-05] MEDS: cefTRIAXone 1,000 mg SDV 1000 MG IVP (07:50)
[2023-12-05] MEDS: sodium chloride 0.9% 1,000 ML 999 ML IV ×2 (07:51→09:19)
[2023-12-05 08:00] VITALS: BP 149/82; PULSE 99; RESP 17; O2SAT 98
[2023-12-05] MEDS: magnesium citrate Btl 296 mL PO (09:39)
[2023-12-05 09:52] VITALS: BP 140/71; PULSE 94; RESP 16; O2SAT 98
== END 2023-12-05 09:56 | disposition home or self-care (01) ==
PROVIDERS: Emergency Provider Emergency Medicine; PCP Family Medicine
DX: N12 Tubulo-interstitial nephritis, not specified as acute or chronic (principal); N39.0 Urinary tract infection, site not specified; K59.00 Constipation, unspecified; E86.0 Dehydration; I10 Essential (primary) hypertension; E78.5 Hyperlipidemia, unspecified
CPT/HCPCS: 74177; 80053; 81001; 85025; 87086; 96374; 96375; 99285; J0696; J2270; J2405; J7030

== ENCOUNTER → 2023-12-07 12:09 | Outpatient (BNVA) | payer MEDICARE, OTHER, SELFPAY | PROVIDERS: PCP Family Medicine; Visit Provider Family Medicine | DX: N39.0 Urinary tract infection, site not specified (principal) | CPT/HCPCS: 81000; 87086 ==

== ENCOUNTER → 2023-12-14 10:45 | Outpatient (BNVA) | payer MEDICARE, OTHER, SELFPAY | PROVIDERS: PCP Nurse Practitioner Family; Visit Provider Nurse Practitioner Family | DX: I10 Essential (primary) hypertension (principal); E11.9 Type 2 diabetes mellitus without complications; E78.2 Mixed hyperlipidemia; N39.0 Urinary tract infection, site not specified | CPT/HCPCS: 80053; 80061; 81003; 83036; 85025; 87086 ==

== ENCOUNTER → 2024-02-26 13:17 | Outpatient (BNVA) | payer MEDICARE, OTHER, SELFPAY | PROVIDERS: PCP Nurse Practitioner Family; Visit Provider Obstetrics & Gynecology | DX: N83.202 Unspecified ovarian cyst, left side (principal); N85.8 Other specified noninflammatory disorders of uterus | CPT/HCPCS: 76830 ==

== ENCOUNTER → 2024-04-24 11:14 | Outpatient (BNVA) | payer MEDICARE, OTHER, SELFPAY | PROVIDERS: Family Provider Nurse Practitioner Family; PCP Nurse Practitioner Family; Visit Provider Nurse Practitioner Family | DX: E11.9 Type 2 diabetes mellitus without complications (principal); F41.9 Anxiety disorder, unspecified; I10 Essential (primary) hypertension; E78.2 Mixed hyperlipidemia; E11.8 Type 2 diabetes mellitus with unspecified complications; E55.9 Vitamin D deficiency, unspecified; F32.A Depression, unspecified | CPT/HCPCS: 80053; 80061; 82306; 82607; 83036; 84443; 85025 ==

== ENCOUNTER → 2024-06-03 13:18 | Outpatient (BNVA) | payer MEDICARE, OTHER, SELFPAY | PROVIDERS: Family Provider Nurse Practitioner Family; PCP Nurse Practitioner Family; Visit Provider Obstetrics & Gynecology | DX: N83.202 Unspecified ovarian cyst, left side (principal); R93.89 Abnormal findings on diagnostic imaging of other specified body structures; N85.8 Other specified noninflammatory disorders of uterus | CPT/HCPCS: 76830 ==

== ENCOUNTER → 2024-07-25 09:34 | Outpatient (BNVA) | payer MEDICARE, OTHER, SELFPAY | PROVIDERS: Family Provider Nurse Practitioner Family; PCP Nurse Practitioner Family; Visit Provider Nurse Practitioner Family | DX: E11.9 Type 2 diabetes mellitus without complications (principal); E11.8 Type 2 diabetes mellitus with unspecified complications; E55.9 Vitamin D deficiency, unspecified | CPT/HCPCS: 80053; 80061; 82306; 83036; 85025 ==

== ENCOUNTER 2024-11-18 06:30 | Outpatient (RCR) | payer MEDICARE, SELFPAY | END 2024-12-17 23:59 | disposition home or self-care (01) | LOC: TPT 06:30 | PROVIDERS: Family Provider Nurse Practitioner Family; PCP Nurse Practitioner Family; Visit Provider Nurse Practitioner Family | DX: R53.1 Weakness (principal) | CPT/HCPCS: 97161 ==

== ENCOUNTER → 2024-12-02 10:33 | Outpatient (BNVA) | payer MEDICARE, OTHER, SELFPAY | PROVIDERS: Family Provider Nurse Practitioner Family; PCP Nurse Practitioner Family; Visit Provider Nurse Practitioner Family | DX: E11.8 Type 2 diabetes mellitus with unspecified complications (principal); R53.1 Weakness; M81.0 Age-related osteoporosis without current pathological fracture | CPT/HCPCS: 80053; 80061; 82306; 82607; 83036; 84443; 85025 ==

== ENCOUNTER 2025-01-17 13:56 | Outpatient (RCR) | payer MEDICARE, OTHER, SELFPAY | END 2025-01-17 23:59 | disposition home or self-care (01) | LOC: TPT 13:56 | PROVIDERS: Family Provider Nurse Practitioner Family; PCP Nurse Practitioner Family; Visit Provider Nurse Practitioner Family | DX: R53.1 Weakness (principal) | CPT/HCPCS: 97110; 97116; 97530 ==

== ENCOUNTER 2025-01-24 15:03 | Outpatient (RCR) | payer MEDICARE, OTHER, SELFPAY | END 2025-01-28 09:10 | disposition home or self-care (01) | LOC: TPT 15:03 | PROVIDERS: Family Provider Nurse Practitioner Family; PCP Nurse Practitioner Family; Visit Provider Nurse Practitioner Family | DX: R53.1 Weakness (principal) | CPT/HCPCS: 97110; 97116 ==